=== PATIENT | female | born 1975 ===

== ENCOUNTER 2024-08-13 10:34 | Outpatient (AMB) | payer MEDICAID, SELFPAY ==
--- NOTE | 2024-08-13 10:42 | PD.ORTHCLVIS ---
Vital signs 08/13/24 10:43 Height 1.68 m Height Method Stated Weight 90.775 kg Weight Measurement Method Standing Scale BMI 32.1 BP 109/73 Blood Pressure Source Automatic Cuff Blood Pressure Location Right Upper Arm Position Sitting Respiration 18 Pulse 77 Pulse Source Monitor Temp 97.6 F Temp Source Temporal Artery Scan Pulse Oximetry (%) 97 Oxygen Delivery Method Room Air Med/Allergies Allergies & Medications Allergies morphine Allergy (Verified 08/13/24 10:43) Medication Reconciliation levothyroxine 200 mcg capsule 200 mcg PO QDAY 03/23/24 [History Confirmed 08/13/24] meloxicam 7.5 mg tablet 7.5 mg PO BID #45 tabs 03/23/24 [Rx Confirmed 08/13/24] diclofenac sodium 1 % topical gel 4 g topical QID #100 grams 05/11/24 [Rx Confirmed 08/13/24] diclofenac sodium 1 % topical gel (Arthritis Pain (diclofenac)) 4 g topical QID #100 grams 08/13/24 [Rx] Subjective Visit Visit for: follow up visit and knee Immunization / Flu Flu Vaccine in the Last 12 Months: Yes Flu Vaccine Exclusion Criteria: Already Received History of Present Illness Chief complaint: FOLLOW UP Patient is a 49-year-old female with left greater than right knee pain. The knee pain has been ongoing for over a year. She has had injections in the past. She has tried meloxicam and has seen another orthopedic surgeon. She did well with the last injection would like another one. The last injections lasted for 5 months. Personal History Occupation: UNEMOPLYED Pain Pain level (0-10): 9 Pain duration: ALL DAY Pain location: inside (medial) and outside (lateral) Pain quality: sharp Pain timing: increases with activity Associated signs & symptoms: numbness and stiffness Ambulatory data Ambulatory device: none Treatments Number of previous injections: 2 Improvement with previous injections: No Improvement with PT: No Improvement with NSAIDS: n/a Review of Systems Review of Systems: All systems negative unless otherwise noted in HPI. Exam Exam Patient is in no acute distress and is cooperative with the examination today. Breathing is nonlabored. In no respiratory distress. Bilateral extremities were evaluated and demonstrates sensation intact to light touch. Palpable pedal pulses are present. No significant edema is present. Bilateral hips were examined. The patient has no pain with log roll of the hips. Internal rotation to 30 degrees and external rotation to 30 degrees is painless. Negative FADIR. The left knee was examined. The left knee is in [varus] alignment. Range of motion from [0-115] degrees. Knee is stable to varus and valgus as well as AP translation with <5mm. Patient has a [negative] McMurrays. There is [no] pain with patellofemoral compression and [no] crepitus noted. The knee is [tender] to palpation [medially]. The right knee was also examined. The right knee is in [varus] alignment. Range of motion from [0-120] degrees. Knee is stable to varus and valgus as well as AP translation with <5mm. Patient has a [negative] McMurrays. There is [no] pain with patellofemoral compression and [no] crepitus noted. The knee is [tender] to palpation [medially]. X-rays demonstrate bilateral joint space narrowing medially. There is almost complete obliteration of the medial joint space Assessment and Plan Problem List (1) Bilateral knee pain: Status: Acute Plan: Patient is a pleasant 49-year-old female with bilateral knee pain and bilateral knee arthritis. She would like repeat injections today,. Recommend knee cortisone injections as patient would like to proceed with conservative treatment at this time. The risks and benefits of the procedure were reviewed with the patient and patient gave verbal consent to continue with the procedure. Procedure: performed by Dr. Barber Using sterile technique the Bilateral knees were thoroughly prepped with alcohol, and approximately 1 cc of Kenalog 40 mg/mL and 4 cc of 1% lidocaine was injected into each knee without resistance into the medial tibial femoral joint space. The patient tolerated the procedure. (2) Degenerative arthritis of knee, bilateral: Status: Acute Office Procedures GNS Level of Care Nursing/Assessment Patient Status: Established Patient Nursing Assessment/Reassesment: Medication Reconciliation, Update PMH in EMR and Vital Signs Coordination of Care: Complex Care and Chronic Disease 1-5, Education Complex Pt/Fam, Consent,records obtained, informed consent, Results/Orders obtained and Staff clarify orders Established Patient Charge Established Patient Point Assignment: 95 Established Patient Point Charge: EP Level 3 (80-115) Surgical Proc/IM SQ injection Major Surgical Procedure: Yes (BILATERAL KNEE INJECTION) Medication Given Medication Given Medication Given: Yes Documented Dose Given: 8 Route: Infiitration Medication Given Medication Given Medication Given: Yes Documented Dose Given: 2 Route: Infiitration Office Meds Xylocaine 10 mg/mL (1 %) injection solution Performing Provider: Jude Barber MD Performing Location: [facility] Administered by: Jude Barber MD on 08/13/24 11:17 Dose Route Admin Location Dispensed Lot Number Expiration Date [facility] Crisis Intervention Counselor 40 mL Infiltration 40 mL [id number] 04/27/27 07485-675-61 [facility] triamcinolone acetonide 40 mg/mL suspension for injection Performing Provider: Jude Barber MD Performing Location: [facility] Administered by: Jude Barber MD on 08/13/24 11:17 Dose Route Admin Location Dispensed Lot Number Expiration Date [facility] Crisis Intervention Counselor 80 mg Infiltration 2 mL [id number] 04/27/26 [address]-0 [employer] Past Medical History Past Medical History Have you ever been diagnosed with any of the following: Respiratory Problems Smoking: No Smoking Cessation Counseling: No Smoking Exposure: No Tobacco Use: No
[2024-08-13 10:43] VITALS: BP 109/73; PULSE 77; RESP 18; TEMP 36.4; O2SAT 97; BMI 32.1
== END 2024-08-13 11:10 | disposition home or self-care (01) ==
LOC: HODSRG 10:34
PROVIDERS: Supervising Provider Orthopaedic Surgery Adult Reconstructive Orthopaedic Surgery; Visit Provider Orthopaedic Surgery Adult Reconstructive Orthopaedic Surgery
DX: M25.561 Pain in right knee (principal); M25.562 Pain in left knee; M17.0 Bilateral primary osteoarthritis of knee
CPT/HCPCS: 20610; 99213; J3301; J3490; G0463

== ENCOUNTER 2024-11-23 09:31 | Outpatient (AMB) | payer MEDICAID, SELFPAY ==
[2024-11-23 09:45] VITALS: BP 104/73; PULSE 80; RESP 18; TEMP 36.4; O2SAT 96; BMI 31.1
--- NOTE | 2024-11-23 09:45 | PD.ORTHCLVIS ---
Vital signs 11/23/24 09:45 Height 1.68 m Height Method Stated Weight 88.025 kg Weight Measurement Method Standing Scale BMI 31.1 BP 104/73 Blood Pressure Source Automatic Cuff Blood Pressure Location Right Upper Arm Position Sitting Respiration 18 Pulse 80 Pulse Source Monitor Temp 97.5 F Temp Source Temporal Artery Scan Pulse Oximetry (%) 96 Oxygen Delivery Method Room Air Med/Allergies Allergies & Medications Allergies morphine Allergy (Verified 11/23/24 09:46) Medication Reconciliation levothyroxine 200 mcg capsule 200 mcg PO QDAY 03/23/24 [History Confirmed 11/23/24] meloxicam 7.5 mg tablet 7.5 mg PO BID #45 tabs 03/23/24 [Rx Confirmed 11/23/24] diclofenac sodium 1 % topical gel 4 g topical QID #100 grams 05/11/24 [Rx Confirmed 11/23/24] diclofenac sodium 1 % topical gel (Arthritis Pain (diclofenac)) 4 g topical QID #100 grams 08/13/24 [Rx Confirmed 11/23/24] Exam Exam Patient is in no acute distress and is cooperative with the examination today. Breathing is nonlabored. In no respiratory distress. Bilateral extremities were evaluated and demonstrates sensation intact to light touch. Palpable pedal pulses are present. No significant edema is present. Bilateral hips were examined. The patient has no pain with log roll of the hips. Internal rotation to 30 degrees and external rotation to 30 degrees is painless. Negative FADIR. The left knee was examined. The left knee is in [varus] alignment. Range of motion from [0-115] degrees. Knee is stable to varus and valgus as well as AP translation with <5mm. Patient has a [negative] McMurrays. There is [no] pain with patellofemoral compression and [no] crepitus noted. The knee is [tender] to palpation [medially]. The right knee was also examined. The right knee is in [varus] alignment. Range of motion from [0-120] degrees. Knee is stable to varus and valgus as well as AP translation with <5mm. Patient has a [negative] McMurrays. There is [no] pain with patellofemoral compression and [no] crepitus noted. The knee is [tender] to palpation [medially]. X-rays demonstrate bilateral joint space narrowing medially. There is almost complete obliteration of the medial joint space Assessment and Plan Problem List (1) Bilateral knee pain: Status: Acute Plan: Patient is a pleasant 49-year-old female with bilateral knee pain and bilateral knee arthritis. She would like repeat injections today,. Recommend knee cortisone injections as patient would like to proceed with conservative treatment at this time. The risks and benefits of the procedure were reviewed with the patient and patient gave verbal consent to continue with the procedure. Procedure: performed by Dr. Barber Using sterile technique the Bilateral knees were thoroughly prepped with alcohol, and approximately 1 cc of Kenalog 40 mg/mL and 4 cc of 1% lidocaine was injected into each knee without resistance into the medial tibial femoral joint space. The patient tolerated the procedure. (2) Degenerative arthritis of knee, bilateral: Status: Acute Office Procedures GNS Level of Care Nursing/Assessment Patient Status: Established Patient Nursing Assessment/Reassesment: Medication Reconciliation, Update PMH in EMR and Vital Signs Coordination of Care: Complex Care and Chronic Disease 1-5, Education Complex Pt/Fam, Consent,records obtained, informed consent, Results/Orders obtained and Staff clarify orders Special Needs: Language special needs Established Patient Charge Established Patient Point Assignment: 95 Established Patient Point Charge: EP Level 3 (80-115) Surgical Proc/IM SQ injection Major Surgical Procedure: Yes (BILATERAL KNEE INJECTIONS ) Medication Given Medication Given Medication Given: Yes Documented Dose Given: 8 Route: Infiitration Medication Given Medication Given Medication Given: Yes Documented Dose Given: 2 Route: Infiitration Office Meds Xylocaine 10 mg/mL (1 %) injection solution Performing Provider: Jude Barber MD Performing Location: [facility] Administered by: Jude Barber MD on 11/23/24 10:57 Dose Route Admin Location Dispensed Lot Number Expiration Date [facility] Dispatcher Radioactive Waste Disposal 40 mL Infiltration 40 mL [id number] [employer] triamcinolone acetonide 40 mg/mL suspension for injection Performing Provider: Jude Barber MD Performing Location: [facility] Administered by: Jude Barber MD on 11/23/24 10:57 Dose Route Admin Location Dispensed Lot Number Expiration Date [facility] Dispatcher Radioactive Waste Disposal 80 mg intra-articular 2 mL [id number] [employer] [place] Intake Visit Data Collection New Patient or Established: Established Patient (seen at [facility] within 3 years) Reason for Visit:: F/U 3 MONTH KNEE INJECTIONS Seen by Clinical Staff ONLY (RN/MA): No Verbal consent obtained for Telemed visit?: No [employer] Required: Yes PCP or OBGYN visit in last 3 months: Yes Hx Now: No Do You Feel Safe at Home: Yes Authorities Contacted: N/A Questionairres Past Medical History Past Medical History Have you ever been diagnosed with any of the following: Respiratory Problems Smoking: No Smoking Cessation Counseling: No Smoking Exposure: No Tobacco Use: No Subjective Visit Visit for: follow up visit and injections Immunization / Flu Flu Vaccine in the Last 12 Months: No Flu Vaccine Exclusion Criteria: No Exclusion Criteria History of Present Illness Chief complaint: F/U 3 MONTH KNEE INJECTIONS Patient did well from her prior bilateral knee injections. She would like new ones today. She received 3 months of relief with the last months. Pain Pain level (0-10): 7 Pain duration: ALL DAY Pain location: inside (medial), outside (lateral) and anterior Pain quality: sharp, dull and aching Pain timing: increases with activity Ambulatory data Ambulatory device: none Treatments Improvement with previous injections: Yes Improvement with PT: No Improvement with NSAIDS: no Review of Systems Review of Systems: All systems negative unless otherwise noted in HPI.
== END 2024-11-23 10:00 | disposition home or self-care (01) ==
LOC: HODSRG 09:31
PROVIDERS: Supervising Provider Orthopaedic Surgery Adult Reconstructive Orthopaedic Surgery; Visit Provider Orthopaedic Surgery Adult Reconstructive Orthopaedic Surgery
DX: M25.561 Pain in right knee (principal); M25.562 Pain in left knee; M17.0 Bilateral primary osteoarthritis of knee
CPT/HCPCS: 20610; 99213; J3301; J3490; G0463

== ENCOUNTER 2025-02-17 10:38 | Outpatient (AMB) | payer MEDICAID, SELFPAY ==
[2025-02-17 11:14] VITALS: BP 110/76; PULSE 80; RESP 18; TEMP 36.6; O2SAT 97; BMI 30.7
--- NOTE | 2025-02-17 11:14 | PD.ORTHCLVIS ---
Vital signs 02/17/25 11:14 Height 1.68 m Height Method Stated Weight 86.806 kg Weight Measurement Method Standing Scale BMI 30.7 BP 110/76 Blood Pressure Source Automatic Cuff Blood Pressure Location Right Upper Arm Position Sitting Respiration 18 Pulse 80 Pulse Source Monitor Temp 97.9 F Temp Source Temporal Artery Scan Pulse Oximetry (%) 97 Oxygen Delivery Method Room Air Med/Allergies Allergies & Medications Allergies morphine Allergy (Verified 02/17/25 11:15) Medication Reconciliation levothyroxine 200 mcg capsule 200 mcg PO QDAY 03/23/24 [History Confirmed 02/17/25] meloxicam 7.5 mg tablet 7.5 mg PO BID #45 tabs 03/23/24 [Rx Confirmed 02/17/25] diclofenac sodium 1 % topical gel (Arthritis Pain (diclofenac)) 4 g topical QID #100 grams 08/13/24 [Rx Confirmed 02/17/25] diclofenac sodium 1 % topical gel 4 g topical QID #100 grams 02/17/25 [Rx Confirmed 02/17/25] Exam Exam Patient is in no acute distress and is cooperative with the examination today. Breathing is nonlabored. In no respiratory distress. Bilateral extremities were evaluated and demonstrates sensation intact to light touch. Palpable pedal pulses are present. No significant edema is present. Bilateral hips were examined. The patient has no pain with log roll of the hips. Internal rotation to 30 degrees and external rotation to 30 degrees is painless. Negative FADIR. The left knee was examined. The left knee is in [varus] alignment. Range of motion from [0-115] degrees. Knee is stable to varus and valgus as well as AP translation with <5mm. Patient has a [negative] McMurrays. There is [no] pain with patellofemoral compression and [no] crepitus noted. The knee is [tender] to palpation [medially]. The right knee was also examined. The right knee is in [varus] alignment. Range of motion from [0-120] degrees. Knee is stable to varus and valgus as well as AP translation with <5mm. Patient has a [negative] McMurrays. There is [no] pain with patellofemoral compression and [no] crepitus noted. The knee is [tender] to palpation [medially]. X-rays demonstrate bilateral joint space narrowing medially. There is almost complete obliteration of the medial joint space Assessment and Plan Problem List (1) Bilateral knee pain: Status: Acute Plan: Patient is a pleasant 49-year-old female with bilateral knee pain and bilateral knee arthritis. She would like repeat injections today,. Recommend knee cortisone injections as patient would like to proceed with conservative treatment at this time. The risks and benefits of the procedure were reviewed with the patient and patient gave verbal consent to continue with the procedure. Procedure: performed by Dr. Barber Using sterile technique the Bilateral knees were thoroughly prepped with alcohol, and approximately 1 cc of Kenalog 40 mg/mL and 4 cc of 1% lidocaine was injected into each knee without resistance into the medial tibial femoral joint space. The patient tolerated the procedure. (2) Degenerative arthritis of knee, bilateral: Status: Acute Office Procedures GNS Level of Care Nursing/Assessment Patient Status: Established Patient Nursing Assessment/Reassesment: Medication Reconciliation, Update PMH in EMR and Vital Signs Coordination of Care: Complex Care and Chronic Disease 1-5, Education Complex Pt/Fam, Consent,records obtained, informed consent, Results/Orders obtained and Staff clarify orders Special Needs: Language special needs Established Patient Charge Established Patient Point Assignment: 95 Established Patient Point Charge: EP Level 3 (80-115) Surgical Proc/IM SQ injection Major Surgical Procedure: Yes (BILATERAL KNEE INJECTIONS ) Medication Given Medication Given Medication Given: Yes Documented Dose Given: 8 Route: Infiitration Medication Given Medication Given Medication Given: Yes Documented Dose Given: 8 Route: Infiitration Office Meds Xylocaine 10 mg/mL (1 %) injection solution Performing Provider: Jude Barber MD Performing Location: [facility] Administered by: Jude Barber MD on 02/17/25 11:18 Dose Route Admin Location Dispensed Lot Number Expiration Date [facility] Telecommunications Equipment Installer 40 mL Infiltration 40 mL triamcinolone acetonide 40 mg/mL suspension for injection Performing Provider: Jude Barber MD Performing Location: [facility] Administered by: Jude Barber MD on 02/17/25 11:18 Dose Route Admin Location Dispensed Lot Number Expiration Date [facility] Telecommunications Equipment Installer 80 mg intra-articular 2 mL MA Intake Visit Data Collection New Patient or Established: Established Patient (seen at [facility] within 3 years) Reason for Visit:: 3 MONTH KNEE INJECTIONS Seen by Clinical Staff ONLY (RN/MA): No Verbal consent obtained for Telemed visit?: No Beverage Sales Consultant Required: Yes PCP or OBGYN visit in last 3 months: Yes Hx Now: No Do You Feel Safe at Home: Yes Authorities Contacted: N/A Questionairres Past Medical History Past Medical History Have you ever been diagnosed with any of the following: Respiratory Problems Smoking: No Smoking Cessation Counseling: No Smoking Exposure: No Tobacco Use: No Subjective Visit Visit for: follow up visit, knee and injections Immunization / Flu Flu Vaccine in the Last 12 Months: No Flu Vaccine Exclusion Criteria: No Exclusion Criteria History of Present Illness Chief complaint: 3 MONTH KNEE INJECTIONS Patient did well from her prior bilateral knee injections. She would like new ones today. She received 3 months of relief with the last months. Personal History Red flag PMH: BMI BMI Counceling provided: Yes Pain Pain level (0-10): 10 Pain duration: ALL DAY Pain location: inside (medial), outside (lateral) and anterior Pain quality: sharp, dull and aching Pain timing: increases with activity Ambulatory data Ambulatory device: none Treatments Improvement with previous injections: Yes Improvement with PT: No Improvement with NSAIDS: no Review of Systems Review of Systems: All systems negative unless otherwise noted in HPI.
== END 2025-02-17 11:13 | disposition home or self-care (01) ==
LOC: HODSRG 10:38
PROVIDERS: Supervising Provider Orthopaedic Surgery Adult Reconstructive Orthopaedic Surgery; Visit Provider Orthopaedic Surgery Adult Reconstructive Orthopaedic Surgery
DX: M25.562 Pain in left knee (principal); M25.561 Pain in right knee; M17.0 Bilateral primary osteoarthritis of knee
CPT/HCPCS: 20610; 99213; J3301; J3490; G0463

== ENCOUNTER 2025-05-24 09:04 | Outpatient (AMB) | payer MEDICAID, SELFPAY ==
[2025-05-24 09:33] VITALS: BP 89/63; PULSE 78; RESP 18; TEMP 36.4; O2SAT 98; BMI 29.1
--- NOTE | 2025-05-24 09:33 | PD.ORTHCLVIS ---
Vital signs 05/24/25 09:33 Height 1.68 m Height Method Stated Weight 82.185 kg Weight Measurement Method Standing Scale BMI 29.1 BP 89/63 L Blood Pressure Source Automatic Cuff Blood Pressure Location Left Upper Arm Position Sitting Respiration 18 Pulse 78 Pulse Source Monitor Temp 97.6 F Temp Source Temporal Artery Scan Pulse Oximetry (%) 98 Oxygen Delivery Method Room Air Med/Allergies Allergies & Medications Allergies morphine Allergy (Verified 05/24/25 09:34) Medication Reconciliation levothyroxine 200 mcg capsule 200 mcg PO QDAY 03/23/24 [History Confirmed 05/24/25] meloxicam 7.5 mg tablet 7.5 mg PO BID #45 tabs 03/23/24 [Rx Confirmed 05/24/25] diclofenac sodium 1 % topical gel 4 g topical QID #100 grams 02/17/25 [Rx Confirmed 05/24/25] diclofenac sodium 1 % topical gel (Arthritis Pain (diclofenac)) 4 g topical QID #100 grams 05/24/25 [Rx] Exam Exam Patient is in no acute distress and is cooperative with the examination today. Breathing is nonlabored. In no respiratory distress. Bilateral extremities were evaluated and demonstrates sensation intact to light touch. Palpable pedal pulses are present. No significant edema is present. Bilateral hips were examined. The patient has no pain with log roll of the hips. Internal rotation to 30 degrees and external rotation to 30 degrees is painless. Negative FADIR. The left knee was examined. The left knee is in [varus] alignment. Range of motion from [0-115] degrees. Knee is stable to varus and valgus as well as AP translation with <5mm. Patient has a [negative] McMurrays. There is [no] pain with patellofemoral compression and [no] crepitus noted. The knee is [tender] to palpation [medially]. The right knee was also examined. The right knee is in [varus] alignment. Range of motion from [0-120] degrees. Knee is stable to varus and valgus as well as AP translation with <5mm. Patient has a [negative] McMurrays. There is [no] pain with patellofemoral compression and [no] crepitus noted. The knee is [tender] to palpation [medially]. X-rays demonstrate bilateral joint space narrowing medially. There is almost complete obliteration of the medial joint space Assessment and Plan Problem List (1) Bilateral knee pain: Status: Acute Plan: Patient is a pleasant 49-year-old female with bilateral knee pain and bilateral knee arthritis. She would like repeat injections today,. Recommend knee cortisone injection as patient would like to proceed with conservative treatment at this time. The risks and benefits of the procedure were reviewed with the patient and patient gave verbal consent to continue with the procedure. Procedure: performed by Dr. Barber Using sterile technique the left knee was thoroughly prepped with alcohol, and approximately 1 cc of Depo-Medrol 80mg/mL and 4 cc of 0.2% ropivacaine was injected without resistance into the medial tibial femoral joint space. The patient tolerated the procedure. Recommend knee cortisone injection as patient would like to proceed with conservative treatment at this time. The risks and benefits of the procedure were reviewed with the patient and patient gave verbal consent to continue with the procedure. Procedure: performed by Dr. Barber Using sterile technique the Right knee was thoroughly prepped with alcohol, and approximately 1 cc of Depo-Medrol 80mg/mL and 4 cc of 0.2% ropivacaine was injected without resistance into the medial tibial femoral joint space. The patient tolerated the procedure. (2) Degenerative arthritis of knee, bilateral: Status: Acute Office Procedures GNS Level of Care Nursing/Assessment Patient Status: Established Patient Nursing Assessment/Reassesment: Medication Reconciliation, Update PMH in EMR and Vital Signs Coordination of Care: Complex Care and Chronic Disease 1-5, Education Complex Pt/Fam, Consent,records obtained, informed consent, Results/Orders obtained and Staff clarify orders Established Patient Charge Established Patient Point Assignment: 95 Established Patient Point Charge: EP Level 3 (80-115) Surgical Proc/IM SQ injection Major Surgical Procedure: Yes (KNEE INJECTION) Medication Given Medication Given Medication Given: Yes Documented Dose Given: 1 Route: Infiitration Medication Given Medication Given Medication Given: Yes Documented Dose Given: 1 Route: Infiitration Medication Given Medication Given Medication Given: Yes Documented Dose Given: 4 Route: Infiitration Medication Given Medication Given Medication Given: Yes Documented Dose Given: 4 Route: Infiitration Office Meds methylprednisolone acetate 80 mg/mL suspension for injection Performing Provider: Jude Barber MD Performing Location: [facility] Administered by: Jude Barber MD on 05/24/25 10:14 Dose Route Admin Location Dispensed Lot Number Expiration Date [facility] Electronic Musical Instrument Repairer 80 mg intra-articular 1 mL [id number] 02/25/27 [address]-5 [employer] methylprednisolone acetate 80 mg/mL suspension for injection Performing Provider: Jude Barber MD Performing Location: [facility] Administered by: Jude Barber MD on 05/24/25 10:14 Dose Route Admin Location Dispensed Lot Number Expiration Date [facility] Electronic Musical Instrument Repairer 80 mg intra-articular 1 mL [id number] 02/25/27 [address]-0 [employer] ropivacaine (PF) 2 mg/mL (0.2 %) injection solution Performing Provider: Jude Barber MD Performing Location: [facility] Administered by: Jude Barber MD on 05/24/25 10:14 Dose Route Admin Location Dispensed Lot Number Expiration Date [place] Electronic Mus[employer] Instrument Rep[employer] 20 mL Infiltration 20 mL [id number] 10/28/27 32883-899-45 [facility] ropivacaine (PF) 2 mg/mL (0.2 %) injection solution Performing Provider: Jude Barber MD Performing Location: [facility] Administered by: Jude Barber MD on 05/24/25 10:14 Dose Route Admin Location Dispensed Lot Number Expiration Date [place] Electronic Mus[employer] Instrument Repairer 20 mL Infiltration 20 mL [id number] 10/28/27 58847-569-06 [facility] [place] Intake Visit Data Collection New Patient or Established: Established Patient (seen at [facility] within 3 years) Reason for Visit:: 3 MONTH KNEE INJECTIONS Seen by Clinical Staff ONLY (RN/MA): No Verbal consent obtained for Telemed visit?: No 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 PCP or OBGYN visit in last 3 months: Yes Hx Now: No Do You Feel Safe at Home: Yes Authorities Contacted: N/A Questionairres Past Medical History Past Medical History Have you ever been diagnosed with any of the following: Respiratory Problems Smoking: No Smoking Cessation Counseling: No Smoking Exposure: No Tobacco Use: No Subjective Visit Visit for: follow up visit, knee and injections Immunization / Flu Flu Vaccine in the Last 12 Months: No Flu Vaccine Exclusion Criteria: No Exclusion Criteria History of Present Illness Chief complaint: 3 MONTH KNEE INJECTIONS Patient did well from her prior bilateral knee injections. She would like new ones today. She received 3 months of relief with the last months. Personal History Red flag PMH: BMI BMI Counceling provided: Yes Pain Pain level (0-10): 10 Pain duration: ALL DAY Pain location: inside (medial), outside (lateral) and anterior Pain quality: sharp, dull and aching Pain timing: increases with activity Ambulatory data Ambulatory device: none Treatments Improvement with previous injections: Yes Improvement with PT: No Improvement with NSAIDS: no Review of Systems Review of Systems: All systems negative unless otherwise noted in HPI.
== END 2025-05-24 10:11 | disposition home or self-care (01) ==
LOC: HODSRG 09:04
PROVIDERS: Supervising Provider Orthopaedic Surgery Adult Reconstructive Orthopaedic Surgery; Visit Provider Orthopaedic Surgery Adult Reconstructive Orthopaedic Surgery
DX: M25.561 Pain in right knee (principal); M25.562 Pain in left knee; M17.0 Bilateral primary osteoarthritis of knee
CPT/HCPCS: 20610; 99213; J1010; J2795; G0463

== ENCOUNTER 2025-08-30 09:00 | Outpatient (AMB) | payer MEDICAID, SELFPAY ==
--- NOTE | 2025-08-30 09:27 | ORTHONT_ITS ---
Vital signs 08/30/25 09:28 Height 1.68 m Height Method Stated Weight 84.085 kg Weight Measurement Method Standing Scale BMI 29.7 BP 105/68 Blood Pressure Source Automatic Cuff Blood Pressure Location Left Upper Arm Position Sitting Respiration 18 Pulse 84 Pulse Source Monitor Temp 97.9 F Temp Source Temporal Artery Scan Pulse Oximetry (%) 97 Oxygen Delivery Method Room Air Med/Allergies Allergies & Medications Allergies morphine Allergy (Verified 08/30/25 09:28) Medication Reconciliation levothyroxine 200 mcg capsule 200 mcg PO QDAY 03/23/24 [History Confirmed 08/30/25] meloxicam 7.5 mg tablet 7.5 mg PO BID #45 tabs 03/23/24 [Rx Confirmed 08/30/25] diclofenac sodium 1 % topical gel 4 g topical QID #100 grams 02/17/25 [Rx Confirmed 08/30/25] diclofenac sodium 1 % topical gel (Arthritis Pain (diclofenac)) 4 g topical QID #100 grams 05/24/25 [Rx Confirmed 08/30/25] Exam Exam Patient is in no acute distress and is cooperative with the examination today. Breathing is nonlabored. In no respiratory distress. Bilateral extremities were evaluated and demonstrates sensation intact to light touch. Palpable pedal pulses are present. No significant edema is present. Bilateral hips were examined. The patient has no pain with log roll of the hips. Internal rotation to 30 degrees and external rotation to 30 degrees is painless. Negative FADIR. The left knee was examined. The left knee is in [varus] alignment. Range of motion from [0-115] degrees. Knee is stable to varus and valgus as well as AP translation with <5mm. Patient has a [negative] McMurrays. There is [no] pain with patellofemoral compression and [no] crepitus noted. The knee is [tender] to palpation [medially]. The right knee was also examined. The right knee is in [varus] alignment. Range of motion from [0-120] degrees. Knee is stable to varus and valgus as well as AP translation with <5mm. Patient has a [negative] McMurrays. There is [no] pain with patellofemoral compression and [no] crepitus noted. The knee is [tender] to palpation [medially]. X-rays demonstrate bilateral joint space narrowing medially. There is almost complete obliteration of the medial joint space Assessment and Plan Problem List (1) Bilateral knee pain: Status: Acute Plan: Patient is a pleasant 49-year-old female with bilateral knee pain and bilateral knee arthritis. She would like repeat injections today,. Recommend knee cortisone injection as patient would like to proceed with conservative treatment at this time. The risks and benefits of the procedure were reviewed with the patient and patient gave verbal consent to continue with the procedure. Procedure: performed by Dr. Barber Using sterile technique the left knee was thoroughly prepped with alcohol, and approximately 1 cc of Depo-Medrol 80mg/mL and 4 cc of 0.2% ropivacaine was injected without resistance into the medial tibial femoral joint space. The patient tolerated the procedure. Recommend knee cortisone injection as patient would like to proceed with conservative treatment at this time. The risks and benefits of the procedure were reviewed with the patient and patient gave verbal consent to continue with the procedure. Procedure: performed by Dr. Barber Using sterile technique the Right knee was thoroughly prepped with alcohol, and approximately 1 cc of Depo-Medrol 80mg/mL and 4 cc of 0.2% ropivacaine was injected without resistance into the medial tibial femoral joint space. The patient tolerated the procedure. (2) Degenerative arthritis of knee, bilateral: Status: Acute Office Procedures GNS Level of Care Nursing/Assessment Patient Status: Established Patient Nursing Assessment/Reassesment: Medication Reconciliation, Update PMH in EMR and Vital Signs Coordination of Care: Complex Care and Chronic Disease 1-5, Education Complex Pt/Fam, Consent,records obtained, informed consent, Results/Orders obtained and Staff clarify orders Established Patient Charge Established Patient Point Assignment: 95 Established Patient Point Charge: EP Level 3 (80-115) Surgical Proc/IM SQ injection Minor Surgical Procedure: Yes (BILATERAL KNEE INJECTION) Medication Given Medication Given Medication Given: Yes Documented Dose Given: 2 Route: Infiitration Medication Given Medication Given Medication Given: Yes Documented Dose Given: 8 Route: Infiitration Office Meds methylprednisolone acetate 80 mg/mL suspension for injection Performing Provider: Jude Barber MD Performing Location: [facility] Administered by: Jude Barber MD on 08/30/25 11:09 Dose Route Admin Location Dispensed Lot Number Expiration Date Pack age [facility] Project Management It Specialist 160 mg intra-articular KNEE 2 mL [id number] 04/27/27 [address]-7 [id number] [employer] ropivacaine (PF) 2 mg/mL (0.2 %) injection solution Performing Provider: Jude Barber MD Performing Location: [facility] Administered by: Jude Barber MD on 08/30/25 11:09 Dose Route Admin Location Dispensed Lot Number Expiration Date Pack age [facility] Project Management It Specialist 40 mL Infiltration KNEE 40 mL [id number] 10/28/27 84930-391-24 [id number] [facility] Intake Visit Data Collection New Patient or Established: Established Patient (seen at [facility] within 3 years) Reason for Visit:: 3 MONTH KNEE INJECTIONS Seen by Clinical Staff ONLY (RN/MA): No Verbal consent obtained for Telemed visit?: No Insurance Sales Executive Required: Yes PCP or OBGYN visit in last 3 months: Yes Hx Now: No Do You Feel Safe at Home: Yes Authorities Contacted: N/A Questionairres Past Medical History Past Medical History Have you ever been diagnosed with any of the following: Respiratory Problems Smoking: No Smoking Cessation Counseling: No Smoking Exposure: No Tobacco Use: No Subjective Visit Visit for: follow up visit, knee and injections Immunization / Flu Flu Vaccine in the Last 12 Months: No Flu Vaccine Exclusion Criteria: No Exclusion Criteria History of Present Illness Chief complaint: 3 MONTH KNEE INJECTIONS Patient did well from her prior bilateral knee injections. She would like new ones today. She received 3 months of relief with the last months. Personal History Red flag PMH: BMI BMI Counceling provided: Yes Pain Pain level (0-10): 10 Pain duration: ALL DAY Pain location: inside (medial), outside (lateral) and anterior Pain quality: sharp, dull and aching Pain timing: increases with activity Ambulatory data Ambulatory device: none Treatments Improvement with previous injections: Yes Improvement with PT: No Improvement with NSAIDS: no Review of Systems Review of Systems: All systems negative unless otherwise noted in HPI.
[2025-08-30 09:28] VITALS: BP 105/68; PULSE 84; RESP 18; TEMP 36.6; O2SAT 97; BMI 29.7
== END 2025-08-30 09:37 | disposition home or self-care (01) ==
LOC: HODSRG 09:00
PROVIDERS: Supervising Provider Orthopaedic Surgery Adult Reconstructive Orthopaedic Surgery; Visit Provider Orthopaedic Surgery Adult Reconstructive Orthopaedic Surgery
DX: M25.561 Pain in right knee (principal); M25.562 Pain in left knee; M17.0 Bilateral primary osteoarthritis of knee
CPT/HCPCS: 20610; 99213; J1010; J2795; G0463